=== PATIENT | female | born 1975 | race Caucasian/White ===

== ENCOUNTER 2019-02-25 13:51 | Emergency (ER) | payer OTHER ==
--- OUTSIDE RECORDS SUMMARY | 2019-02-25 14:05 | XMS REPORT | Continuity of Care Document ---
:1975 External Reference #:[id number] Author Name Maria E Ayala PA Address [address] [facility] 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 Onset: 12/02/2015 Mixed hyperlipidemia Andriy Pate M.D. Onset: 12/02/2015 Calcific tendinitis of right shoulder Maria E Ayala PA Onset: 01/30/2019 Bicipital tenosynovitis Andriy Pate M.D. Onset: 12/02/2015 Disorder of shoulder Andriy Pate M.D. Onset: 12/02/2015 Shoulder joint pain Andriy Pate M.D. Onset: 12/02/2015 Social History Type Date Description Comments Sex Unknown Marital Status Home Environment Lives With Spouse Work Status Unemployed Tobacco Use Start: Unknown Never Smoked Cigarettes ETOH Use Currently consumes alcohol socially Tobacco Use Start: Unknown Patient has never smoked Recreational Drug Use Never Used Drugs Smoking Status Reviewed: 01/30/19 Patient has never smoked Allergies, Adverse Reactions, Alerts Active Allergies Reaction Severity Comments Date Doxycycline 12/02/2015 Erythromycin 12/02/2015 Keflex 12/02/2015 Sulfa Drugs 12/02/2015 Shellfish-derived Products 07/11/2018 Medications Active Medications SIG Qnty Indications Ordering Date Provider One Daily Daily Vitamin Unknown Lisinopril 1 by mouth every 90tabs Unknown 20mg Tablets day Zyrtec Allergy one daily Unknown Metformin HCL 2 Times Per Day Unknown 1000mg Fluticasone Propionate as Needed Unknown 150mg Clopidogrel Bisulfate 1 by mouth every Unknown day 75mg Tablets Lansoprazole 1 by mouth every Unknown 30mg day Capsules DR Nitroglycerin 1 patch to chest Unknown 0.4mg/HR wall 12 hours on Patches 24HR and then 12 hours off Metronidazole apply to affected Unknown 0.75% Cream areas 2x/day derm. Levothyroxine Sodium Take One Tablet Unknown By Mouth Every 175mcg Tablets Day Aspirin Chew One Tablet Unknown 81mg Chewtabs By Mouth Every Day Metoprolol Tartrate Take One Tablet Unknown 50mg By Mouth Twice A Tablets Day Proctosol HC apply think film Unknown 2.5% Cream to rectum twice a day and after wiping from bowel movements x 1 week then as needed Rosuvastatin Calcium 1 by mouth every Unknown 20mg day Tablets History Medications Meloxicam 1 by mouth every 60tabs Andriy Pate, 01/16/2016 - 15mg Tablets day M.D. 09/11/2018 Ibuprofen Unknown - 12/15/2015 Fish Oil Extra Strength Unknown - 09/11/2018 Calcium 500/Vitamin D Take 1 Daily Unknown - 09/11/2018 Atenolol Unknown - 07/11/2018 Levothyroxine Sodium 1 Time Per Day Unknown - 09/11/2018 Glyburide Unknown - 07/11/2018 Prevacid as Needed Unknown - 09/11/2018 Atorvastatin Calcium 1 Time Per Day Unknown - 40mg 01/30/2019 Tylenol Unknown - 12/15/2015 Voltaren Unknown - 07/11/2018 Aspirin Ec 1 by mouth every Unknown - 81mg Tablets DR day 09/11/2018 Metoprolol Succinate ER 1 by mouth every Unknown - day 09/11/2018 50mg Tablets ER 24HR Atorvastatin Calcium Take One Tablet Unknown - 40mg By Mouth Every 09/11/2018 Tablets Day Medications Administered in Office Medication SIG Qnty Indications Ordering Provider Date Depomedrol 40mg/1cc Maria E Ayala PA 01/30/2019 (methylprednisolone acetate) Injection Depomedrol 40mg/1cc Maria E Ayala PA 01/30/2019 (methylprednisolone acetate) Injection Vital Signs Date Vital Result Comment 11/15/2018 7:53am BP Systolic 131 mmHg BP Diastolic 85 mmHg Body Temperature 98.1 F Heart Rate 76 /min Height 61.5 inches 5'1.50" Weight 240.00 lb BMI (Body Mass Index) 44.6 kg/m2 BSA (Body Surface Area) 2.05 m2 [place] body weight in kilograms 49 kg O2 % BldC Oximetry 100 % 09/11/2018 8:45am BP Systolic 123 mmHg BP Diastolic 84 mmHg Body Temperature 98.5 F Heart Rate 82 /min Respiratory Rate 18 /min Height 61 inches 5'1" Weight 234.00 lb BMI (Body Mass Index) 44.2 kg/m2 BSA (Body Surface Area) 2.02 m2 [place] body weight in kilograms 48 kg O2 % BldC Oximetry 100 % 07/11/2018 8:46am BP Systolic 129 mmHg BP Diastolic 86 mmHg Heart Rate 99 /min Height 62 inches 5'2" Weight 237.00 lb BMI (Body Mass Index) 43.3 kg/m2 BSA (Body Surface Area) 2.05 m2 [place] body weight in kilograms 50 kg O2 % BldC Oximetry 99 % 12/02/2015 8:50am BP Systolic 161 mmHg BP Diastolic 99 mmHg Heart Rate 87 /min Height 61 inches 5'1" Weight 272.00 lb BMI (Body Mass Index) 51.4 kg/m2 BSA (Body Surface Area) 2.15 m2 Procedures Date Code Description Status 01/30/2019 Asp./Injection major joint Completed 01/30/201983343 Injection:Tendon Sheath,Lig. Cyst Completed 11/15/2018 90789 Debridement Nails Any Method 6 Or More Completed 11/15/2018 17175 Pare Hyperkeratotic Lesion, 2-4 Completed 09/11/2018 62152 Debridement Nails Any Method 6 Or More Completed 09/11/2018 57703 Pare Hyperkeratotic Lesion, 2-4 Completed 07/11/2018 24860 Debridement Nails Any Method 6 Or More Completed 07/11/2018 79133 Pare Hyperkeratotic Lesion, 2-4 Completed 12/02/2015 89498 Radiology, Shoulder: Two Views (Sso) Completed 12/02/2015 Asp./Injection major joint Completed 12/02/2015 Injection, Tendon Origin/Insertion Completed 09/03/1998 97377 Biopsy Skin Lesion Completed Encounters Type Date Location Provider Dx Diagnosis Office Visit 01/30/2019 Orthopaedic Office Maria E Ayala M75.31 Calcific 2:30p PA tendinitis of right shoulder M75.21 Bicipital tendinitis, right shoulder Office Visit 12/15/2015 8:30a Orthopa[facility] Office Andriy Pate, M25.511 Pain in right M.D. shoulder M75.41 Impingement syndrome of right shoulder Office Visit 12/02/2015 8:45a Orthopa[facility] Office Andriy Pate M25.511 Pain in right M.D. shoulder M75.41 Impingement syndrome of right shoulder M75.21 Bicipital tendinitis, right shoulder Plan of Treatment Future Appointment(s):03/12/2019 8:30 am - Maria E Ayala PA at Orthopaedic Office
[2019-02-25 14:20] VITALS: BP 146/93
--- NOTE | 2019-02-25 14:33 | UC ---
Skin Complaint HPI - HPI Summary HPI Summary: 43-year-old female who was on vacation in [place] and on February 20 noticed that she had a slight rash which is very itchy. She does not believe they are bedbug bites however it has worsened mildly. It started on her left arm but has now spread to her arms and legs. She denies any difficulty breathing. - History of Current Complaint Chief Complaint: UCSkin Time Seen by Provider: 02/25/19 14:02 Stated Complaint: RASH Hx Obtained From: Patient Hx Last Menstrual Period: first wk of Jan, 2019 ?: No Onset/Duration: Gradual Onset, Lasting Days Timing: Constant Onset Severity: Mild Current Severity: Mild Pain Intensity: 1 Location: Other - Arms and legs. Character: Pruritus, Redness, Raised Aggravating Factor(s): Touch Alleviating Factor(s): Nothing, Other - Patient has been applying Benadryl ointment to the areas. Associated Signs & Symptoms: Positive: Negative Related History: Insect Bite/Sting - Possibility of insect bite while on vacation. - Allergy/Home Medications Allergies/Adverse Reactions: Allergies Allergy/AdvReac Type Severity Reaction Status Date / Time doxycycline Allergy Rash Verified 02/25/19 14:09 erythromycin base Allergy Rash Verified 02/25/19 14:09 Sulfa (Sulfonamide Allergy Rash Verified 02/25/19 14:09 Antibiotics) cephalexin [From Keflex] AdvReac Vomiting Verified 02/25/19 14:09 Home Medications: Home Medications Aspirin EC TAB* [Ecotrin EC Low Dose 81 MG*] 81 mg PO DAILY 02/25/19 [History Confirmed 02/25/19] Cetirizine* [ZyrTEC 10 MG TAB*] 10 mg PO DAILY 02/25/19 [History Confirmed 02/25] Clopidogrel TAB* [Plavix TAB*] 75 mg PO DAILY 02/25/19 [History Confirmed ] Lansoprazole CAP (NF) [Prevacid CAP (NF)] 30 mg PO BID 02/25/19 [History Confirmed 02/25/19] Levothyroxine TAB* [Synthroid TAB*] 175 mcg PO DAILY 02/25/19 [History Confirmed 02/25/19] Lisinopril TAB* [Prinivil TAB*] 20 mg PO DAILY 02/25/19 [History Confirmed 02/25] Metoprolol Tartrate TAB* [Lopressor TAB*] 50 mg PO BID 02/25/19 [History Confirmed 02/25/19] Mometasone NASAL (NF) [Nasonex (NF)] 1 spray BID 02/25/19 [History Confirmed 06/07] Nitroglycerin 1 tab ONCE PRN 02/25/19 [History Confirmed 02/25/19] Rosuvastatin Calcium 20 mg PO DAILY 02/25/19 [History Confirmed 02/25/19] metFORMIN* [Glucophage 1000 MG TAB *] 1,000 mg PO BID 02/25/19 [History Confirmed 02/25/19] PMH/Surg Hx/FS Hx/Imm Hx Previously Healthy: Yes Endocrine History: Diabetes, Thyroid Disease Cardiovascular History: Hypertension - Surgical History Surgical History: Yes Surgery Procedure, Year, and Place: Cardiac stent - Family History Known Family History: Positive: Non-Contributory - Social History Alcohol Use: Occasionally Substance Use Type: None Smoking Status (MU): Never Smoked Tobacco Review of Systems All Other Systems Reviewed And Are Negative: Yes Skin: Positive: Rash - Rash started on her left arm but is no spread to her right arm and both legs. Is Patient Immunocompromised?: No Physical Exam Triage Information Reviewed: Yes Appearance: Well-Appearing, No Pain Distress, Well-Nourished Vital Signs: Initial Vital Signs Temp 99.4 F 02/25/19 14:09 Pulse 98 02/25/19 14:09 Resp 20 02/25/19 14:09 BP 146/93 02/25/19 14:09 Pulse Ox 100 02/25/19 14:09 Vital Signs Reviewed: Yes Eyes: Positive: Conjunctiva Clear Respiratory: Positive: Lungs clear, Normal breath sounds, No respiratory distress, No accessory muscle use Cardiovascular: Positive: RRR, No Murmur, Pulses Normal, Brisk Capillary Refill Musculoskeletal Exam: Normal Neurological Exam: Normal Psychological Exam: Normal Skin: Positive: Rashes - Patient has what appears to be a contact dermatitis in both arms and legs. I don't feel these are insect bites. Course/Dx - Course Course Of Treatment: I believe this is a contact dermatitis and not insect bites. She preferred not to have a higher dose of prednisone because her blood sugar is on the borderline high. She does not take insulin. I'm going to try a Medrol Dosepak but she is to follow-up with her primary care provider if no improvement. - Diagnoses Provider Diagnosis: Contact dermatitis Discharge - Sign-Out/Discharge Documenting (check all that apply): Patient Departure All imaging exams completed and their final reports reviewed: No Studies - Discharge Plan Condition: Fair Disposition: HOME Prescriptions: methylPREDNISolone [Medrol] 4 mg PO DAILY #1 tab.[id number].pk Patient Education Materials: Contact Dermatitis (DC) Referrals: Nitesh Perez DO [Primary Care Provider] - Additional Instructions: May continue taking [id number] mg every 6 hours and at bedtime, may continue Zyrtec, may continue Benadryl cream to rash. Follow up with your primary care provider if no improvement in 2-3 days. Go to the ER if you have any facial swelling or difficulty breathing. - Billing Disposition and Condition Condition: FAIR Disposition: Home - Attestation Statements Provider Attestation: Per institutional requirements, I have reviewed the chart, however, I was not consulted specifically or made aware of this patient by the midlevel provider. I did not personally evaluate, interact with , or disposition this patient.
== END 2019-02-25 14:39 | disposition home or self-care (01) ==
LOC: UCCORT 13:51
DX: L25.9 Unspecified contact dermatitis, unspecified cause (principal); E11.9 Type 2 diabetes mellitus without complications; Z79.84 Long term (current) use of oral hypoglycemic drugs; E07.9 Disorder of thyroid, unspecified; I10 Essential (primary) hypertension; Z79.02 Long term (current) use of antithrombotics/antiplatelets; Z79.82 Long term (current) use of aspirin; Z95.5 Presence of coronary angioplasty implant and graft; Z88.1 Allergy status to other antibiotic agents; Z88.2 Allergy status to sulfonamides
CPT/HCPCS: 99212; G0463

== ENCOUNTER 2019-03-14 16:11 | Emergency (ER) | payer OTHER ==
--- OUTSIDE RECORDS SUMMARY | 2019-03-14 16:27 | XMS REPORT | Continuity of Care Document ---
:1975 External Reference #:[id number] Author Name Maria E Ayala PA Address [address] [facility] 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 Onset: 12/02/2015 Mixed hyperlipidemia Andriy Pate M.D. Onset: 12/02/2015 Eruption Maria E Ayala PA Onset: 03/12/2019 Calcific tendinitis of right shoulder Maria E Ayala PA Onset: 01/30/2019 Bicipital tenosynovitis Andriy Pate M.D. Onset: 12/02/2015 Disorder of shoulder Andriy Pate M.D. Onset: 12/02/2015 Shoulder joint pain Andriy Pate M.D. Onset: 12/02/2015 Social History Type Date Description Comments Sex Unknown Marital Status Home Environment Lives With Spouse Work Status Unemployed Hand Dominance Right-handed Tobacco Use Start: Unknown Never Smoked Cigarettes ETOH Use Currently consumes alcohol socially Tobacco Use Start: Unknown Patient has never smoked Recreational Drug Use Never Used Drugs Smoking Status Reviewed: 02/22/19 Patient has never smoked Allergies, Adverse Reactions, Alerts Active Allergies Reaction Severity Comments Date Doxycycline 12/02/2015 Erythromycin 12/02/2015 Keflex 12/02/2015 Sulfa Drugs 12/02/2015 Shellfish-derived Products 07/11/2018 Medications Active Medications SIG Qnty Indications Ordering Date Provider Rosuvastatin Calcium 1 by mouth every Unknown 20mg day Tablets Proctosol HC apply think film Unknown 2.5% Cream to rectum twice a day and after wiping from bowel movements x 1 week then as needed Metoprolol Tartrate Take One Tablet Unknown 50mg By Mouth Twice A Tablets Day Aspirin Chew One Tablet Unknown 81mg Chewtabs By Mouth Every Day Levothyroxine Sodium Take One Tablet Unknown By Mouth Every 175mcg Tablets Day Metronidazole apply to affected Unknown 0.75% Cream areas 2x/day derm. Nitroglycerin 1 patch to chest Unknown 0.4mg/HR wall 12 hours on Patches 24HR and then 12 hours off Lansoprazole 1 by mouth every Unknown 30mg day Capsules DR Fluticasone Propionate as Needed Unknown 150mg Metformin HCL 2 Times Per Day Unknown 1000mg Zyrtec Allergy 2 daily Unknown Lisinopril 1 by mouth every 90tabs Unknown 20mg Tablets day One Daily Daily Vitamin Unknown History Medications Meloxicam 1 by mouth every 60tabs Andriy Pate, 01/16/2016 - 15mg Tablets day M.D. 09/11/2018 Atorvastatin Calcium Take One Tablet Unknown - 40mg By Mouth Every 09/11/2018 Tablets Day Metoprolol Succinate ER 1 by mouth every Unknown - day 09/11/2018 50mg Tablets ER 24HR Aspirin Ec 1 by mouth every Unknown - 81mg Tablets DR day 09/11/2018 Clopidogrel Bisulfate 1 by mouth every Unknown - 75mg day 03/12/2019 Tablets Voltaren Unknown - 07/11/2018 Tylenol Unknown - 12/15/2015 Atorvastatin Calcium 1 Time Per Day Unknown - 40mg 01/30/2019 Prevacid as Needed Unknown - 09/11/2018 Glyburide Unknown - 07/11/2018 Levothyroxine Sodium 1 Time Per Day Unknown - 09/11/2018 Atenolol Unknown - 07/11/2018 Calcium 500/Vitamin D Take 1 Daily Unknown - 09/11/2018 Fish Oil Extra Strength Unknown - 09/11/2018 Ibuprofen Unknown - 12/15/2015 Vital Signs Date Vital Result Comment 03/12/2019 8:27am BP Systolic 116 mmHg BP Diastolic 77 mmHg Body Temperature 98.1 F Heart Rate 70 /min Height 61.5 inches 5'1.50" Weight 234.00 lb BMI (Body Mass Index) 43.5 kg/m2 BSA (Body Surface Area) 2.03 m2 [place] body weight in kilograms 49 kg O2 % BldC Oximetry 100 % 02/14/2019 7:55am BP Systolic 132 mmHg BP Diastolic 88 mmHg Body Temperature 98.1 F Heart Rate 75 /min Height 62 inches 5'2" Weight 232.00 lb BMI (Body Mass Index) 42.4 kg/m2 BSA (Body Surface Area) 2.04 m2 [place] body weight in kilograms 50 kg O2 % BldC Oximetry 99 % 11/15/2018 7:53am BP Systolic 131 mmHg BP Diastolic 85 mmHg Body Temperature 98.1 F Heart Rate 76 /min Height 61.5 inches 5'1.50" Weight 240.00 lb BMI (Body Mass Index) 44.6 kg/m2 BSA (Body Surface Area) 2.05 m2 [place] body weight in kilograms 49 kg O2 % BldC Oximetry 100 % 09/11/2018 8:45am BP Systolic 123 mmHg BP Diastolic 84 mmHg Body Temperature 98.5 F Heart Rate 82 /min Respiratory Rate 18 /min Height 61 inches 5'1" Weight 234.00 lb BMI (Body Mass Index) 44.2 kg/m2 BSA (Body Surface Area) 2.02 m2 [place] body weight in kilograms 48 kg O2 % BldC Oximetry 100 % 07/11/2018 8:46am BP Systolic 129 mmHg BP Diastolic 86 mmHg Heart Rate 99 /min Height 62 inches 5'2" Weight 237.00 lb BMI (Body Mass Index) 43.3 kg/m2 BSA (Body Surface Area) 2.05 m2 [place] body weight in kilograms 50 kg O2 % BldC Oximetry 99 % 12/02/2015 8:50am BP Systolic 161 mmHg BP Diastolic 99 mmHg Heart Rate 87 /min Height 61 inches 5'1" Weight 272.00 lb BMI (Body Mass Index) 51.4 kg/m2 BSA (Body Surface Area) 2.15 m2 Procedures Date Code Description Status 02/14/2019 75792 Debridement Nails Any Method 6 Or More Completed 02/14/2019 03439 Pare Hyperkeratotic Lesion, 2-4 Completed 01/30/2019 Asp./Injection major joint Completed 01/30/2019 Injection:Tendon Sheath,Lig. Cyst Completed 11/15/2018 85367 Debridement Nails Any Method 6 Or More Completed 11/15/2018 82494 Pare Hyperkeratotic Lesion, 2-4 Completed 09/11/2018 13112 Debridement Nails Any Method 6 Or More Completed 09/11/2018 31295 Pare Hyperkeratotic Lesion, 2-4 Completed 07/11/2018 15037 Debridement Nails Any Method 6 Or More Completed 07/11/2018 18536 Pare Hyperkeratotic Lesion, 2-4 Completed 12/02/2015 93232 Radiology, Shoulder: Two Views (Sso) Completed 12/02/2015 Asp./Injection major joint Completed 12/02/2015 Injection, Tendon Origin/Insertion Completed 09/03/1998 62784 Biopsy Skin Lesion Completed Encounters Type Date Location Provider Dx Diagnosis Office Visit 03/12/2019 [facility]opa[facility] Office Maria E Ayala M75.31 Calcific 8:30a PA tendinitis of right shoulder M75.21 Bicipital tendinitis, right shoulder M75.41 Impingement syndrome of right shoulder R21 Rash and other nonspecific skin eruption Office Visit 01/30/2019 2:30p Orthopaedic Office Maria E Ayala M25.511 Pain in right PA shoulder M75.31 Calcific tendinitis of right shoulder M75.21 Bicipital tendinitis, right shoulder Office Visit 12/15/2015 8:30a Orthopa[facility] Office Andriy Pate M25.511 Pain in right M.D. shoulder M75.41 Impingement syndrome of right shoulder Office Visit 12/02/2015 8:45a Orthopa[facility] Office Andriy Pate M25.511 Pain in right M.D. shoulder M75.41 Impingement syndrome of right shoulder M75.21 Bicipital tendinitis, right shoulder Plan of Treatment Future Appointment(s):04/20/2019 8:40 am - Wiley Zuniga DPM at Podiatry [id number]/12/2019 - Maria E Ayala, PAM75.31 Calcific tendinitis of right shoulderComments:Overall she is doing better. I have explained that she may need repeat injection in the future. She can proceed with activities as tolerated. She will follow up at our office on an as-needed basis.As far as the rash I do not believe it's related to the injection but there is certainly a possibility. I would continue with follow-up with dermatology.M75.21 Bicipital tendinitis, right [id number] Impingement syndrome of right [id number] Rash and other nonspecific skin eruptionAllFollow up:prn
[2019-03-14 16:35] VITALS: BP 153/86
--- NOTE | 2019-03-14 16:52 | UC ---
Ear Complaint HPI - HPI Summary HPI Summary: 43-year-old woman comes in with a chief complaint of left ear pain. Patient was cleaning her ears this morning pain started shortly thereafter. She feels like a stabbing pains a year. Denies any dental pain and jaw pain parotid gland pain. Has not been swimming. No fevers or chills. - History of Current Complaint Chief Complaint: UCEar Stated Complaint: EAR PAIN Time Seen by Provider: 03/14/19 16:26 Hx Last Menstrual Period: 02/27/19 Pain Intensity: 5 - Allergies/Home Medications Allergies/Adverse Reactions: Allergies Allergy/AdvReac Type Severity Reaction Status Date / Time doxycycline Allergy Rash Verified 03/14/19 16:36 erythromycin base Allergy Rash Verified 03/14/19 16:36 Sulfa (Sulfonamide Allergy Rash Verified 03/14/19 16:36 Antibiotics) cephalexin [From Keflex] AdvReac Vomiting Verified 03/14/19 16:36 Home Medications: Home Medications Multivitamin [Multivitamins] 1 each PO DAILY 03/14/19 [History Confirmed ] Steroid Cream 1 applic TOPICAL DAILY 03/14/19 [History Confirmed 03/14/19] diPHENhydraMINE PO* [Benadryl PO 25 MG TAB*] 50 mg PO BEDTIME PRN 03/14/19 [ History Confirmed 03/14/19] PMH/Surg Hx/FS Hx/Imm Hx Previously Healthy: Yes Endocrine History: Diabetes, Hypothyroidism, Dyslipidemia Cardiovascular History: Hypertension, Myocardial Infarction - Surgical History Surgical History: Yes Surgery Procedure, Year, and Place: Cardiac stent 02/13/18 [facility] - Family History Known Family History: Positive: Non-Contributory - Social History Alcohol Use: Occasionally Substance Use Type: None Smoking Status (MU): Never Smoked Tobacco Review of Systems All Other Systems Reviewed And Are Negative: Yes Constitutional: Positive: Negative, Fever Eyes: Positive: Negative ENT: Positive: Ear Ache Respiratory: Positive: Negative Cardiovascular: Positive: Negative Gastrointestinal: Positive: Negative Motor: Positive: Negative Neurovascular: Positive: Negative Musculoskeletal: Positive: Negative Neurological: Positive: Negative Psychological: Positive: Negative Is Patient Immunocompromised?: No Physical Exam Triage Information Reviewed: Yes Appearance: Well-Appearing, No Pain Distress, Well-Nourished Vital Signs: Initial Vital Signs Temp 98.3 F 03/14/19 16:31 Pulse 90 03/14/19 16:31 Resp 18 03/14/19 16:31 BP 153/86 03/14/19 16:31 Pulse Ox 100 03/14/19 16:31 Vital Signs Reviewed: Yes Eye Exam: Normal Eyes: Positive: Conjunctiva Clear ENT: Positive: Pharynx normal, TM bulging - left, Other - Mild tenderness to palpation of left tragus Neck: Positive: Supple Respiratory: Positive: No respiratory distress Musculoskeletal: Positive: Strength Intact, ROM Intact Neurological: Positive: Alert, Muscle Tone Normal Psychological: Positive: Normal Response To Family, Age Appropriate Behavior Skin Exam: Normal Ear Complaint Course/Dx - Differential Dx/Diagnosis Provider Diagnosis: Left ear pain Discharge - Sign-Out/Discharge Documenting (check all that apply): Patient Departure All imaging exams completed and their final reports reviewed: No Studies - Discharge Plan Condition: Stable Disposition: HOME Prescriptions: Amoxicillin PO (*) [Amoxicillin 875 MG (*)] 875 mg PO BID #20 tab Ofloxacin 0.3% (Ear Drop)* [Floxin 0.3% OTIC.LIU (Ear Drop)] 5 drop LEFT EAR BID #1 btl Patient Education Materials: Otitis Externa (ED), Ear Infection (ED) Referrals: Nitesh Perez DO [Primary Care Provider] - Additional Instructions: FOLLOW UP WITH YOUR DOCTOR IF NOT COMPLETELY IMPROVED. GET RECHECKED SOONER IF YOUR CONDITION WORSENS OR ANY QUESTIONS OR CONCERNS. - Billing Disposition and Condition Condition: STABLE Disposition: Home
== END 2019-03-14 16:58 | disposition home or self-care (01) ==
LOC: UCCORT 16:11
DX: H92.02 Otalgia, left ear (principal); Z88.1 Allergy status to other antibiotic agents; Z88.2 Allergy status to sulfonamides; E11.9 Type 2 diabetes mellitus without complications; I10 Essential (primary) hypertension; I25.2 Old myocardial infarction
CPT/HCPCS: 99212; G0463